=== PATIENT | male | born 1950 | race Caucasian/White ===

== ENCOUNTER → 2019-09-22 | Outpatient (CLI) | payer OTHER ==
[~2019-09-22] MED LIST: KEFLEX500 MG PO; VICODIN ES 7501 TAB PO
== END | disposition home or self-care (01) ==
LOC: RAD 14:42
DX: J40 Bronchitis, not specified as acute or chronic (principal)

== ENCOUNTER → 2023-10-10 | Outpatient (CLI) | payer OTHER | END | disposition home or self-care (01) | LOC: RAD 15:15 | PROVIDERS: ATTEND Physician Assistant | DX: S46.912A Strain of unspecified muscle, fascia and tendon at shoulder and upper arm level, left arm, initial encounter (principal); M19.012 Primary osteoarthritis, left shoulder; M25.852 Other specified joint disorders, left hip; X58.XXXA Exposure to other specified factors, initial encounter; Y93.89 Activity, other specified; Y92.89 Other specified places as the place of occurrence of the external cause; Y99.8 Other external cause status ==